=== PATIENT | male | born 2005 | race Two or more races ===

== ENCOUNTER 2024-09-01 21:19 | Inpatient (IN) | payer MEDICAID ==
[~2024-09-01] VITALS: Ht 172.7 cm; Wt 87.0 kg
[~2024-09-01 21:19] MED LIST: POLYPOW59 PO; ZOFR4T PO
[2024-09-01 21:49] LABS: Basophils # (auto) 0 10 ^3/uL (0-0.2); Basophils % (auto) 0.4 % (0.0-2.0); Eosinophils # (auto) 0.1 10 ^3/uL (0-0.8); Eosinophils % (auto) 1.4 % (0.0-7.0); Hemoglobin 16.2 g/dL (13.5-17.5); Lymphocytes # (auto) 1.8 10 ^3/uL (0.4-5.4); Lymphocytes % (auto) 18.6 % (10.0-50.0); Mean Corpuscular Hemoglobin 29.4 pg (28.0-32.0); Mean Corpuscular Hgb Conc. 33.8 g/dL (32.0-36.0); Mean Corpuscular Volume 87.2 fL (80.0-100.0); Monocytes # (auto) 0.9 10 ^3/uL (0-1.3); Monocytes % (auto) 9.1 % (0.0-12.0); Neutrophils # (auto) 6.9 10 ^3/uL (1.6-8.6); Neutrophils % (auto) 70.5 % (37.0-80.0); Nucleated Red Blood Cells % 0.1 %; Platelet Count (auto) 314 10^3/uL (140-450); Red Blood Cells 5.51 10^6/uL (4.5-5.90); Red Cell Distribution Width 14.6 % (11.8-14.3); White Blood Cell 9.8 10^3/uL (4.4-10.8)
--- NOTE | 2024-09-01 22:02 | ED.PDOC ---
HPI Comments 19-year-old male came to emergency room due to chest pains. Patient has history of asthma and anxiety, states for the past week, he has been having intermittent episodes left-sided chest pains, pressure, nonradiating, unprovoked, tender to touch, associated with body malaise and low-grade fever. He denies using any prohibited drugs. NO FAMILY HISTORY OF CARDIAC DISEASE. Chief Complaint: Chest Pain Time Seen by MD: 22:01 Reviewed Notes: Nurses Notes Allergies: Coded Allergies: NO KNOWN ALLERGIES (Unverified , 10/02/12) Home Meds Active Scripts Polyethylene Glycol 3350 (Goodsense Clearlax) 17 Gm/Scoop Pow, 17 GM PO DAILY for 5 Days, #5 POW Prov:ELOY CALABRESE 03/01/24 Ondansetron Odt 4MG Tab (ZOFRAN PO) 4 Mg Tb, 4 MG PO Q6HPRN PRN, #15 TAB ODT TAB-DISSOLVE IN MOUTH, THEN SWALLOW Prov:ELOY CALABRESE 03/01/24 Information Source: Patient Mode of Arrival: Ambulatory Severity: Moderate Timing: Days Duration: Intermittent Prehospital treatment: None Review of Systems REVIEW OF SYSTEMS: No fever, no chills, or fatigue HEENT: No sore throat, no earache, no congestion, no neck pain. Cardiac: (+) chest pain. No palpitations. Lungs: No shortness of breath, no cough. GI: No nausea, no vomiting, no diarrhea, no constipation, no abdominal pain : No dysuria, frequency, or urgency. No hematuria. Musculoskeletal: No joint pain , no joint swelling, no extremity edema. Skin: No rash, no itching. Neuro: No headache, no dizziness, no weakness Vital Signs Vital Signs Date Time Temp Pulse Resp B/P (MAP) Pulse Ox O2 Delivery O2 Flow Rate FiO2 09/02/24 00:13 97.8 87 18 138/72 (94) 96 97.8 09/01/24 22:57 Room Air Physical Exam General: Awake, alert and oriented. No acute distress. Skin: Skin in warm, dry and intact. Appropriate color for ethnicity. Nailbeds pink with no cyanosis. HEENT: The head is normocephalic and atraumatic. Conjunctivae are clear without exudates or hemorrhage. Sclera is non-icteric. EOM are intact. No signs of nystagmus. Eyelids are normal in appearance without swelling or lesions. Oral mucosa is pink and moist Neck: The neck is supple with normal range of motion. No JVD. Cardiac: Heart rate and rhythm are normal. No murmurs, gallops, or rubs are auscultated. Respiratory: No signs of respiratory distress. Lung sounds are clear in all lobes bilaterally without rales, ronchi, or wheezes. Abdominal: Abdomen is soft, non-tender without distention. Bowel sounds are present and normoactive in all four quadrants. Extremities: Upper and lower extremities are atraumatic in appearance without deformity or edema. Neurological: The patient is awake, alert and oriented to person, place, and time with normal speech. Speech is clear. There is no facial asymmetry. Psychiatric: Appropriate mood and affect. Good judgement and insight. No visual or auditory hallucinations. Past Medical History PAST MEDICAL HISTORY: Anxiety, Asthma Surgical History: Denies all surgeries Family History Family History: Reviewed,noncontributory to illness Social History Smoker: Non-Smoker Alcohol: Denies ETOH Use Drugs: Denies Drug Use Lives In: Home EKG EKG : Pulse Rate (adult): 105 Cardiac Rhythm: ST Hypertrophy: LAE Was a procedure done? Was a procedure done?: No CP Differential Dx Differential Diagnosis: Angina, Anxiety / Panic Attack Differential Diagnosis: Angina, Chest Wall Pain, Costochondritis, Esophageal reflux/spasm, Gastritis, Myocardial Infarction X-Ray, Labs, Meds, VS Vital Signs Date Time Temp Pulse Resp B/P (MAP) Pulse Ox O2 Delivery O2 Flow Rate FiO2 09/02/24 00:13 97.8 87 18 138/72 (94) 96 97.8 09/02/24 00:12 87 18 138/72 09/01/24 23:27 82 18 156/79 09/01/24 22:57 82 18 98 Room Air 09/01/24 22:57 98.6 82 18 156/79 (104) 98 98.6 09/01/24 22:33 92 09/01/24 22:02 105 09/01/24 21:26 105 09/01/24 21:20 98.8 96 18 153/79 (103) 96 Lab Test 09/01/24 23:33 09/01/24 22:59 09/01/24 21:29 Range/Units D-Dimer, Quantitative Pending Magnesium Level 2.2 1.6-2.6 mg/dL Troponin I High Sensitivity 89 *H 81 *H 84 *H </=54 ng/L White Blood Count 9.8 4.4-10.8 10^3/uL Red Blood Count 5.51 4.5-5.90 10^6/uL Hemoglobin 16.2 13.5-17.5 g/dL Hematocrit 48.0 41.0-53.0 % Mean Corpuscular Volume 87.2 80.0-100.0 fL Mean Corpuscular Hemoglobin 29.4 28.0-32.0 pg Mean Corpuscular Hemoglobin Concent 33.8 32.0-36.0 g/dL Red Cell Distribution Width 14.6 H 11.8-14.3 % Platelet Count 314 140-450 10^3/uL Mean Platelet Volume 7.6 6.9-10.8 fL Neutrophils (%) (Auto) 70.5 37.0-80.0 % Lymphocytes (%) (Auto) 18.6 10.0-50.0 % Monocytes (%) (Auto) 9.1 0.0-12.0 % Eosinophils (%) (Auto) 1.4 0.0-7.0 % Basophils (%) (Auto) 0.4 0.0-2.0 % Neutrophils # (Auto) 6.9 1.6-8.6 10 ^3/uL Lymphocytes # (Auto) 1.8 0.4-5.4 10 ^3/uL Monocytes # (Auto) 0.9 0-1.3 10 ^3/uL Eosinophils # (Auto) 0.1 0-0.8 10 ^3/uL Basophils # (Auto) 0 0-0.2 10 ^3/uL Nucleated Red Blood Cells 0.1 % Sodium Level 138 136-145 mmol/L Potassium Level 4.1 3.5-5.1 mmol/L Chloride Level 102 98-107 mmol/L Carbon Dioxide Level 26 20-31 mmol/L Anion Gap 10 5-15 Blood Urea Nitrogen 22 9-23 mg/dL Creatinine 0.93 0.700-1.30 mg/dL Glomerular Filtration Rate Calc 121 >90 mL/min BUN/Creatinine Ratio 23.7 H 10.0-20.0 Serum Glucose 88 74-106 mg/dL Calcium Level 10.7 H 8.7-10.4 mg/dL Total Bilirubin 0.5 0.2-1.0 mg/dL Aspartate Amino Transferase (AST) 44 H 13-40 U/L Alanine Aminotransferase (ALT) 54 H 7-40 U/L Alkaline Phosphatase 94 46-116 U/L B-Type Natriuretic Peptide 2.00 0-100 pg/mL Total Protein 7.8 5.7-8.2 g/dL Albumin 4.9 H 3.2-4.8 g/dL Current Medications Medications (Trade) Dose Ordered Sig/Aleksandr Route Start Time Stop Time Status Last Admin Aspirin 324 mg ONCE ONCE PO 09/01/24 21:30 09/01/24 21:31 DC 09/01/24 23:06 Morphine Sulfate 2 mg ONCE ONCE IV 09/01/24 21:30 09/01/24 21:31 DC 09/01/24 23:27 EXAM: XY CHEST XRAY 1 VIEW CLINICAL HISTORY: cp TECHNIQUE: Single AP view of the chest WID: COMPARISON: XY CHEST PORTABLE on DOS: 10/23/23 FINDINGS: Lines and tubes: None Chest: The heart size and pulmonary vasculature is within normal limits. No pleural effusion, pneumothorax, or consolidation. The osseous structures are grossly intact. IMPRESSION: No acute cardiopulmonary abnormality. Time of 1ST Reevaluation: 21:59 Reevaluation 1ST: Unchanged Patient Education/Counseling: Diagnosis, Treatment Family Education/Counseling: No Family Present Departure 1 Departure Time of Disposition: 01:07 Impression: Primary Impression: Chest pain Additional Impression: Elevated troponin Disposition: ADMITTED INPATIENT Condition: Stable Comments 19-year-old male with several days of left-sided chest pain. Patient denies any known past medical history. EKG shows no ST changes or ST elevations. Troponin is elevated. Patient admitted for further treatment, evaluation and monitoring. Critical Care Note Critical Care Time?: Yes (35 min-critical care time only) Critical care comment: Active chest pains Stability Stability form required: No Heart Score Heart Score: Heart Score Response (Comments) Value History Slightly Suspicious 0 EKG Repolarization Disturb 1 Age <45 0 Risk Factors No known risk factors 0 Troponin >3 x's Normal limit 2 Total 3 I personally scribed for AURORA HAWK MD ([email or web address]) on 09/01/24 at 22:02. Electronically submitted by Andrei Kwon ([facility]). I personally scribed for AURORA HAWK MD ([email or web address]) on 09/01/24 at 23:09. Electronically submitted by Andrei Kwon ([facility]). I personally scribed for AURORA HAWK MD ([email or web address]) on 09/02/24 at 01:02. Electronically submitted by Andrei Kwon ([facility]). AURORA HAWK MD Sep 01, 2024 22:02
[2024-09-01 22:06] LABS: Alkaline Phosphatase 94 U/L (46-116); Anion Gap 10 (5-15); BUN/Creatinine Ratio 23.7 (10.0-20.0); Bilirubin, Total 0.5 mg/dL (0.2-1.0); Blood Urea Nitrogen 22 mg/dL (9-23); Carbon Dioxide 26 mmol/L (20-31); Chloride 102 mmol/L (98-107); Glucose 88 mg/dL (74-106); Potassium 4.1 mmol/L (3.5-5.1); Sodium 138 mmol/L (136-145); Total Protein 7.8 g/dL (5.7-8.2)
[2024-09-01 22:37] LABS: Alanine Aminotransferase 54 U/L (7-40); Albumin 4.9 g/dL (3.2-4.8); Aspartate Aminotransferase 44 U/L (13-40); Calcium 10.7 mg/dL (8.7-10.4)
--- NOTE | 2024-09-01 22:51 | DVH ---
EXAM: XY CHEST XRAY 1 VIEW CLINICAL HISTORY: cp TECHNIQUE: Single AP view of the chest WID: COMPARISON: XY CHEST PORTABLE on DOS: 10/23/23 FINDINGS: Lines and tubes: None Chest: The heart size and pulmonary vasculature is within normal limits. No pleural effusion, pneumothorax, or consolidation. The osseous structures are grossly intact. IMPRESSION: No acute cardiopulmonary abnormality.
[2024-09-01] MEDS: ASPirin 81 mg TAB PO ONE (23:06)
[2024-09-01] MEDS: MORPHINE SULFATE INJ 2 MG/ml SYRG IV ONE (23:27)
[2024-09-02] MEDS ORDERED: MORPHINE SULFATE INJ 2 MG/ml SYRG IV PRN ×2 (03:45→04:15)
[2024-09-02] MEDS ORDERED: HYDROcodone-ACET 5/325MG TAB PO PRN (03:45)
[2024-09-02] MEDS ORDERED: ONDANSETRON HCL 4 MG/2 ML VIAL IV PRN (03:45)
[2024-09-02] MEDS ORDERED: ACETAMINOPHEN 325 MG TAB PO PRN (03:45)
[2024-09-02] MEDS: SODIUM CHLORIDE 0.9% 1,000 ML IV SCH (03:45)
[2024-09-02] MEDS ORDERED: DOCUSATE SOD 100 MG CAP PO PRN (03:45)
[2024-09-02 04:09] LABS: Basophils # (auto) 0.1 10 ^3/uL (0-0.2); Basophils % (auto) 0.6 % (0.0-2.0); Eosinophils # (auto) 0.1 10 ^3/uL (0-0.8); Eosinophils % (auto) 1.2 % (0.0-7.0); Hematocrit 46.8 % (41.0-53.0); Hemoglobin 15.9 g/dL (13.5-17.5); Lymphocytes # (auto) 2.5 10 ^3/uL (0.4-5.4); Lymphocytes % (auto) 27.9 % (10.0-50.0); Mean Corpuscular Hemoglobin 29.7 pg (28.0-32.0); Mean Corpuscular Volume 87.4 fL (80.0-100.0); Monocytes # (auto) 0.9 10 ^3/uL (0-1.3); Monocytes % (auto) 9.8 % (0.0-12.0); Neutrophils # (auto) 5.3 10 ^3/uL (1.6-8.6); Neutrophils % (auto) 60.5 % (37.0-80.0); Nucleated Red Blood Cells % 0.1 %; Platelet Count (auto) 312 10^3/uL (140-450); Red Blood Cells 5.35 10^6/uL (4.5-5.90); Red Cell Distribution Width 14.4 % (11.8-14.3); White Blood Cell 8.8 10^3/uL (4.4-10.8)
--- NOTE | 2024-09-02 04:12 | DVHHP2 ---
History of Present Illness Reason for Visit: Acute chest pain History of Present Illness The patient is a 19-year-old male with past medical history of asthma and anxiety who presented to [facility] ED with complaint of chest pain. Patient reports having intermittent episode of left-sided chest pain, pressure in nature, nonradiating, tender to touch, getting worse that prompted this visit. Patient was seen and evaluated in the ED, laboratory data shows WBC 9.8, platelets 314, sodium 138, potassium 4.1, BUN 22, creatinine 0.93, GFR 121, glucose 88, troponin 89, AST 44, ALT 54, blood pressure 138/72, heart rate 87, temperature 97.8 F, O2 saturation 98% on room air. Patient was given aspirin 3 24 mg by mouth x1, please see medication orders section in the computer. On my assessment, patient denies chest pain at this moment, no headache, no dizziness, no diaphoresis, no shortness of breaths, no nausea, no vomiting, no fever, no chills. Patient was admitted for further evaluation and medical management. Past Medical History Anxiety, Asthma Past Surgical History Denies all surgeries Family History Reviewed, noncontributory to the management of this case. Past Social History The patient lives at home, denies smoking, alcohol or illicit drugs abuse. Review of Systems Constitutional: Yes: Malaise; No: Fever, Chills, Sweats, Weakness, Other Eyes: No: Pain, Vision change, Conjunctivae inflammation, Eyelid inflammation, Other, Redness ENT: No: Ear pain, Ear discharge, Nose pain, Nose discharge, Nose congestion, Mouth pain, Mouth swelling, Throat pain, Throat swelling, Other Respiratory: No: Cough, Dry, Shortness of breath, SOB with excertion, Wheezing, Hemoptysis, Pleuritic Pain, Sputum, Wheezing, Other Cardiovascular: Chest Pain; No: Palpitations, Orthopnea, Paroxysmal Noc. Dyspnea, Edema, Lt Headedness, Other Gastrointestinal: No: Nausea, Vomiting, Abdominal Pain, Diarrhea, Constipation, Melena, Hematochezia, Other Genitourinary: No Dysuria, No Frequency, No Incontinence, No Hematuria, No Retention, No Other Musculoskeletal: No: other, neck pain, shoulder pain, arm pain, back pain, hand pain, leg pain, foot pain Skin: No: Rash, Lesions, Jaundice, Bruising, Other Neurological: No: Weakness, Numbness, Incoordination, Change in speech, Confusion, Seizures, Other Allergies: Coded Allergies: NO KNOWN ALLERGIES (Unverified , 10/02/12) Medications Current Medications Medications Dose Ordered Sig/Aleksandr Route Start Time Stop Time Status Last Admin Dose Admin Aspirin 81 mg DAILY PO 09/02/24 10:00 Sodium Chloride 1,000 ml @ 60 mls/hr [id number] IV 09/02/24 03:45 Acetaminophen/ Hydrocodone Bitart 1 tab Q4HP PRN PO 09/02/24 03:45 Ondansetron HCl 4 mg Q4HP PRN IV 09/02/24 03:45 Docusate Sodium 100 mg BIDPRN PRN PO 09/02/24 03:45 Acetaminophen 650 mg Q6HP PRN PO 09/02/24 03:45 Morphine Sulfate 2 mg Q4HPRN PRN IV 09/02/24 03:45 Exam Vital Signs Vital Signs Date Time Temp Pulse Resp B/P (MAP) Pulse Ox O2 Delivery O2 Flow Rate FiO2 09/02/24 00:13 97.8 87 18 138/72 (94) 96 97.8 09/01/24 22:57 Room Air General Appearance: Alert, Oriented X3, Cooperative, No acute distress HEENT: Atraumatic, PERRLA, EOMI, Mucous membr. moist/pink Respiratory: Clear to auscultation, Normal air movement Cardiovascular: Regular rate, Normal S1, Normal S2, No murmurs Abdominal: Normal bowel sounds, Soft, No tenderness, No hepatospenomegaly, No masses Extremities: No clubbing, No cyanosis, No edema, Normal pulses, No tender ness/swelling Skin: No rashes, No breakdown, No significant lesion Neuro: Normal gait, Normal speech, Strength at 5/5 X4 ext, Normal tone, Sensation intact, Cranial nerves 3-12 NL, Reflexes 2+ Psych/Mental Status: Mental status NL, Mood NL Labs/Xrays Labs Test 09/02/24 03:56 09/01/24 23:33 09/01/24 21:29 Range/Units White Blood Count 8.8 4.4-10.8 10^3/uL Red Blood Count 5.35 4.5-5.90 10^6/uL Hemoglobin 15.9 13.5-17.5 g/dL Hematocrit 46.8 41.0-53.0 % Mean Corpuscular Volume 87.4 80.0-100.0 fL Mean Corpuscular Hemoglobin 29.7 28.0-32.0 pg Mean Corpuscular Hemoglobin Concent 34.0 32.0-36.0 g/dL Red Cell Distribution Width 14.4 H 11.8-14.3 % Platelet Count 312 140-450 10^3/uL Mean Platelet Volume 7.5 6.9-10.8 fL Neutrophils (%) (Auto) 60.5 37.0-80.0 % Lymphocytes (%) (Auto) 27.9 10.0-50.0 % Monocytes (%) (Auto) 9.8 0.0-12.0 % Eosinophils (%) (Auto) 1.2 0.0-7.0 % Basophils (%) (Auto) 0.6 0.0-2.0 % Neutrophils # (Auto) 5.3 1.6-8.6 10 ^3/uL Lymphocytes # (Auto) 2.5 0.4-5.4 10 ^3/uL Monocytes # (Auto) 0.9 0-1.3 10 ^3/uL Eosinophils # (Auto) 0.1 0-0.8 10 ^3/uL Basophils # (Auto) 0.1 0-0.2 10 ^3/uL Nucleated Red Blood Cells 0.1 % D-Dimer, Quantitative 0.25 0.0-0.49 mg/L FEU Magnesium Level 2.2 1.6-2.6 mg/dL B-Type Natriuretic Peptide 2.00 0-100 pg/mL [id number] UN[facility]: [id number] : 2005 LOC: ER ROOM / BED: / AGE / SEX: 19 / M ADM STATUS: REG ER SERVICE 26 ORDERING PHYSICIAN: AURORA HAWK MD PROCEDURE(s): CXR1 - CHEST XRAY 1 VIEW REASON: cp ORDER NUMBER(s): [id number], ACCESSION NUMBER(s): [id number] EXAM: XY CHEST XRAY 1 VIEW CLINICAL HISTORY: cp TECHNIQUE: Single AP view of the chest WID: COMPARISON: XY CHEST PORTABLE on DOS: 3/29/24 FINDINGS: Lines and tubes: None Chest: The heart size and pulmonary vasculature is within normal limits. No pleural effusion, pneumothorax, or consolidation. The osseous structures are grossly intact. IMPRESSION: No acute cardiopulmonary abnormality. Assessment/Plan Assessment/Plan Acute chest pain Elevated troponin Plan 1. Admit to telemetry unit 2. Breathing treatment 3. Pain control management 4. Management of fluids and electrolytes 5. Consultation for Cardiology 6. Diagnostic tests chest x-ray 7. DVT prophylaxis-on aspirin 8. Repeat labs CBC, CMP in a.m. 9. Continue with current medical management 10. Treatment plan discussed with patient and RN. Patient verbalized understanding. Plan discussed with: Patient, Other (RN) My Orders Orders - SANCHO LEWIS DNP Procedure Category Date Status Time Comprehensive LAB 09/02/24 In Process Metabolic Panel 03:41 Aspirin Tablet PHA 09/02/24 In Process 10:00 Troponin-I Hs LAB 09/02/24 In Process 03:41 Troponin-I Hs LAB 09/02/24 Logged 07:00 Allergies MARYBETH 09/02/24 In Process 03:41 Code Status CODE 09/02/24 Transmitted 03:41 Sodium Chloride 0.9% PHA 09/02/24 In Process 03:45 Oxygen Per Hour RT 09/02/24 Transmitted 03:41 Hydrocodone-Acet PHA 09/02/24 In Process 5/325mg Tab ([place] 03:45 Ondansetron Hcl PHA 09/02/24 In Process (Zofran) 03:45 Docusate Sodium PHA 09/02/24 In Process Capsule (Colace 03:45 Complete Blood Count LAB 09/03/24 Verified 04:00 Comprehensive LAB 09/03/24 Verified Metabolic Panel 04:00 Cardiac DIET 09/02/24 Transmitted Diet-2gna,Lofat,Lochol Breakfast Condition: Serious MARYBETH 09/02/24 In Process 03:41 Acetaminophen Tablet PHA 09/02/24 In Process (Tylenol Tablet) 03:45 Bedrest With Bathroom MARYBETH 09/02/24 In Process Privileg 03:41 Morphine Sulfate PHA 09/02/24 In Process Injection 03:45 Sequential MARYBETH 09/02/24 In Process Compression Device Admit ADMIT 09/02/24 Verified 04:10 Nitroglycerin PHA 09/02/24 Verified Sublingual (Ntrostat 04:15 Morphine Sulfate PHA 09/02/24 Verified Injection 04:15 Notify Of Changes MRAYBETH 09/02/24 Verified From Base 04:10 Behavioral Therapy Coordinator For [facility] 09/02/24 Verified 24 Hours 04:10 Emergency Dysrhythmia [facility] 09/02/24 Verified Protocol 04:10 Rhythm Strips Once [facility] 09/02/24 Verified Every Shift 04:10 Oxygen By Nasal 09/02/24 Verified Cannula 04:10 Problem List: (1) Acute chest pain (2) Elevated troponin Date of Service: Sep 02, 2024 Billing Provider: SANCHO LEWIS DNP Common Visit Codes: 94233-AMPRPHQ INP/OBS CARE (HIGH) SANCHO LEWIS DNP Sep 02, 2024 04:12
[2024-09-02] MEDS ORDERED: NITROGLYCERIN 0.4 MG SL TAB SL PRN (04:15)
[2024-09-02 04:27] LABS: Albumin 4.6 g/dL (3.2-4.8); Alkaline Phosphatase 84 U/L (46-116); Anion Gap 9 (5-15); Aspartate Aminotransferase 35 U/L (13-40); Bilirubin, Total 0.6 mg/dL (0.2-1.0); Blood Urea Nitrogen 16 mg/dL (9-23); Carbon Dioxide 26 mmol/L (20-31); Chloride 103 mmol/L (98-107); Glucose 100 mg/dL (74-106); Potassium 4.1 mmol/L (3.5-5.1); Sodium 138 mmol/L (136-145); Total Protein 7.6 g/dL (5.7-8.2)
[2024-09-02 04:29] LABS: Alanine Aminotransferase 50 U/L (7-40)
[2024-09-02 08:08] LABS: Triglycerides 64 mg/dL (< 150)
[2024-09-02 08:10] LABS: Cholesterol 171 mg/dL (< 200); HDL Cholesterol 50 mg/dL (40-59)
[2024-09-02 08:14] LABS: LDL Cholesterol 112 mg/dL (< 100)
--- NOTE | 2024-09-02 08:24 | ECG ---
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
--- NOTE | 2024-09-02 08:24 | ECG ---
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
[2024-09-02 08:51] LABS: Urine Bacteria None Seen /hpf (None Seen)
[2024-09-02 09:17] LABS: Opiate Scree,Urine Neg (NEGATIVE)
[2024-09-02 09:19] LABS: Amphetamine Screen, Urine Neg (NEGATIVE); Barbiturate Scree,Urine Neg (NEGATIVE); Benzodiazephine Screen, Urine Neg (NEGATIVE); Cannabinoid Screen, Urine Neg (NEGATIVE); Cocaine Screen, Urine Neg (NEGATIVE); Phencyclidine Screen, Urine Neg (NEGATIVE)
[2024-09-02 09:28] LABS: Urine Blood Negative /uL (Negative); Urine Clarity Clear (Clear); Urine Color Yellow (Yellow); Urine Protein, UAD Negative (Negative); Urine Specific Gravity 1.026 (1.001-1.035); Urine Squamous Epithelial Cell None Seen /hpf (<5); Urine Urobilinogen Normal (Negative); Urine WBC 21 /HPF (0-3); Urine pH 5.5 (5.0-9.0)
--- NOTE | 2024-09-02 09:42 | DVHINCON2 ---
Date Seen: Sep 02, 2024 Referring Physician MD Juan Luis Reason for Consultation Chest pain, elevated troponin History of Present Illness This is a 19-year-old male patient who presents to the emergency room with chief complaint of chest pain. The patient states that he has been experiencing chest pain for approximately one week. The patient describes the pain as unprovoked, intermittent, pressure-like in nature, and left-sided with radiation across to the right side of his chest. He denies any associated symptoms. Pain is reproducible upon palpation. Initial twelve lead electrocardiogram reveals sinus tachycardia with ST segment depression to inferolateral leads. Initial troponin level of 84ng/L with flat trend thereafter. Significant past medical history includes asthma and anxiety. Past Medical History Past medical history reviewed. No other significant than mentioned above. Past Surgical History Denies all previous surgeries Family History: Diabetes mellitus G8 MOTHER Family History Family history reviewed. Social History Denies the use of tobacco, alcohol or illicit drugs. Allergies: Coded Allergies: NO KNOWN ALLERGIES (Unverified , 10/02/12) Home Meds Active Scripts Polyethylene Glycol 3350 (Goodsense Clearlax) 17 Gm/Scoop Pow, 17 GM PO DAILY for 5 Days, #5 POW Prov:ELOY CALABRESE 03/01/24 Ondansetron Odt 4MG Tab (ZOFRAN PO) 4 Mg Tb, 4 MG PO Q6HPRN PRN, #15 TAB ODT TAB-DISSOLVE IN MOUTH, THEN SWALLOW Prov:ELOY CALABRESE [facility] 03/01/24 Home Meds Denies taking any prescribed medications Current Medications Current Medications Medications (Trade) Dose Ordered Sig/Aleksandr Route PRN Reason Start Time Stop Time Status Last Admin Aspirin 81 mg DAILY PO 09/02/24 10:00 Sodium Chloride 1,000 ml @ 60 mls/hr [id number] IV 09/02/24 03:45 Acetaminophen/ Hydrocodone Bitart ([place] 5/325MG Tab) 1 tab Q4HP PRN PO MODERATE PAIN (4-6 PAIN SCALE) 09/02/24 03:45 Ondansetron HCl (Zofran) 4 mg Q4HP PRN IV NAUSEA / VOMITING 09/02/24 03:45 Docusate Sodium (Colace Capsule) 100 mg BIDPRN PRN PO FOR CONSTIPATION 09/02/24 03:45 Acetaminophen (Tylenol Tablet) 650 mg Q6HP PRN PO PAIN SCALE 1-3 OR TEMP>100.4 09/02/24 03:45 Morphine Sulfate 2 mg Q4HPRN PRN IV SEVERE PAIN (7-10 PAIN SCALE) 09/02/24 03:45 Nitroglycerin (Ntrostat Sublingual) 0.4 mg Q5MINP PRN SL FOR CHEST PAIN 09/02/24 04:15 Morphine Sulfate 2 mg Q30M PRN IV FOR CHEST PAIN 09/02/24 04:15 Review of Systems Constitutional: No symptom reported Ears, Nose, & Throat: No symptom reported Eyes: No symptom reported Neurological: No symptoms reported Pulmonary/Respiratory: No symptoms reported Cardiovascular: Chest pain Gastrointestinal: No symptom reported Genitourinary: No symptom reported Musculoskeletal: No symptom reported Skin: No symptom reported Psychiatric: No symptom reported Endocrine: No symptom reported Hematologic/Lymphatic: No symptom reported Vital Signs Vital Signs Date Time Temp Pulse Resp B/P (MAP) Pulse Ox O2 Delivery O2 Flow Rate FiO2 09/02/24 08:52 88 18 137/77 (97) 98 09/02/24 05:37 98.0 98.0 09/01/24 22:57 Room Air Physical Exam General Appearance: Cooperative. Well-developed. Well-nourished. No acute distress. Pulmonary/Respiratory: Clear, bilateral breaths sounds. Cardiovascular/Chest: Regular rate and rhythm. Peripheral Pulses: 2+ Radial (R). 2+ Radial (L). 2+ Pedal (R). 2+ Pedal (L) Abdominal Exam: Normal bowel sounds. Ankle Exam: Negative ankle edema Lower extremities: Negative lower extremity edema Neuro/Mental Status: A/OX4, coherent. Thoughts/Psych: Normal thought pattern. Appropriate mood and affect. Good judgment and insight. Appearance: No acute distress. Skin Exam: Normal inspection. Normal color. Warm and dry. Labs/Diagnostic Data Labs Test 09/02/24 07:47 09/02/24 07:35 09/02/24 07:25 09/02/24 03:56 Range/Units Urine Color Yellow Yellow Urine Clarity Clear Clear Urine pH 5.5 5.0-9.0 Urine Specific [place] 1.026 1.001-1.035 Urine Protein Negative Negative Urine Ketones Negative Negative Urine Blood Negative Negative /uL Urine Nitrite Negative Negative Urine Bilirubin Negative Negative Urine Urobilinogen Normal Negative mg/dL Urine Leukocyte Esterase 1+ Negative /uL Urine RBC 2 0 - 3 /hpf Urine Microscopic WBC 21 H 0-3 /HPF Urine Squamous Epithelial Cells None seen <5 /hpf Urine Bacteria None seen None Seen /hpf Urine Glucose Normal Normal mg/dL Urine Opiates Screen Neg NEGATIVE Urine Fentanyl Screen Neg NEGATIVE Urine Barbiturates Screen Neg NEGATIVE Urine Phencyclidine Screen Neg NEGATIVE Urine Amphetamines Screen Neg NEGATIVE Urine Benzodiazepines Screen Neg NEGATIVE Urine Cocaine Screen Neg NEGATIVE Urine Cannabinoids Screen Neg NEGATIVE Triglycerides Level 64 < 150 mg/dL Cholesterol Level 171 < 200 mg/dL LDL Cholesterol 112 H < 100 mg/dL HDL Cholesterol 50 40-59 mg/dL Troponin I High Sensitivity 96 *H </=54 ng/L Thyroid Stimulating Hormone (TSH) 3.05 0.55-4.78 uIU/mL White Blood Count 8.8 4.4-10.8 10^3/uL Red Blood Count 5.35 4.5-5.90 10^6/uL Hemoglobin 15.9 13.5-17.5 g/dL Hematocrit 46.8 41.0-53.0 % Mean Corpuscular Volume 87.4 80.0-100.0 fL Mean Corpuscular Hemoglobin 29.7 28.0-32.0 pg Mean Corpuscular Hemoglobin Concent 34.0 32.0-36.0 g/dL Red Cell Distribution Width 14.4 H 11.8-14.3 % Platelet Count 312 140-450 10^3/uL Mean Platelet Volume 7.5 6.9-10.8 fL Neutrophils (%) (Auto) 60.5 37.0-80.0 % Lymphocytes (%) (Auto) 27.9 10.0-50.0 % Monocytes (%) (Auto) 9.8 0.0-12.0 % Eosinophils (%) (Auto) 1.2 0.0-7.0 % Basophils (%) (Auto) 0.6 0.0-2.0 % Neutrophils # (Auto) 5.3 1.6-8.6 10 ^3/uL Lymphocytes # (Auto) 2.5 0.4-5.4 10 ^3/uL Monocytes # (Auto) 0.9 0-1.3 10 ^3/uL Eosinophils # (Auto) 0.1 0-0.8 10 ^3/uL Basophils # (Auto) 0.1 0-0.2 10 ^3/uL Nucleated Red Blood Cells 0.1 % Sodium Level 138 136-145 mmol/L Potassium Level 4.1 3.5-5.1 mmol/L Chloride Level 103 98-107 mmol/L Carbon Dioxide Level 26 20-31 mmol/L Anion Gap 9 5-15 Blood Urea Nitrogen 16 9-23 mg/dL Creatinine 0.94 0.700-1.30 mg/dL Glomerular Filtration Rate Calc 119 >90 mL/min BUN/Creatinine Ratio 17.0 10.0-20.0 Serum Glucose 100 74-106 mg/dL Hemoglobin A1c 5.0 <5.7 % A1C Calcium Level 10.0 8.7-10.4 mg/dL Total Bilirubin 0.6 0.2-1.0 mg/dL Aspartate Amino Transferase (AST) 35 13-40 U/L Alanine Aminotransferase (ALT) 50 H 7-40 U/L Alkaline Phosphatase 84 46-116 U/L Total Protein 7.6 5.7-8.2 g/dL Albumin 4.6 3.2-4.8 g/dL Test 09/01/24 23:33 09/01/24 21:29 Range/Units D-Dimer, Quantitative 0.25 0.0-0.49 mg/L FEU Magnesium Level 2.2 1.6-2.6 mg/dL B-Type Natriuretic Peptide 2.00 0-100 pg/mL Assessment Chest pain, rule out coronary ischemia NSTEMI, likely type II Rule out structural heart disease Hyperlipidemia, newly diagnosed Plan/Recommendation We will continue following plan/recommendations (Dr. Denny): * Echocardiogram to evaluate cardiac function * Chest pain protocol * ROSALINA score: 2 points * HEART score: 2 points * Cardiac surveillance * Nuclear stress test Patient seen and examined in the emergency room with . We will schedule the patient for a nuclear stress test at first availability. Thank you for allowing us to care for this patient. Please call with any questions or concerns. Critical care time spent: 41 minutes This medical document was created using an electronic medical record system with voice recognition software and computerized dictation system. Although this document has been carefully reviewed, there might still be some phonetic and typographical errors. Occasional wrong-word or ``sound-alike substitutions may have occurred due to the inherent limitations of voice recognition software. These areas are purely typographical due to imperfections of the software programs and do not reflect any compromise in the patient's medical care. Please read the chart carefully and recognize, using context, where these substitutions have occurred. Plan discussed with: Patient NYHA Physical activity limitations: NA Date of Service: Sep 02, 2024 Billing Provider: BHAVANI NICHOLSON Cardiology Common Codes: 76052-[id number] INP/OBS CARE (High) Cardiology Consultation Codes: [id number] CONSULT <45MIN BHAVANI NICHOLSON Sep 02, 2024 09:42
[2024-09-02 10:31] VITALS: PULSE 74; RESP 16; O2SAT 96
[2024-09-02] MEDS: ASPirin 81 mg TAB PO SCH (10:31)
[2024-09-02 11:36] LABS: Erythrocyte Sedimentation Rate 6 mm/hr (0-20)
--- NOTE | 2024-09-02 18:06 | DVHPN2 ---
Subjective Continues to have intermittent chest pain at rest. Reports it being substernal with radiation to left shoulder and arm. Reviewed: Care Plan, H&P, Labs, Medications Changes from previous H/P or p: No Changes General: Per HPI Eyes: No Pain, No Vision change, No Conjunctivae inflammation, No Eyelid inflammation, No Other, No Redness ENT: No Ear pain, No Ear discharge, No Nose pain, No Nose discharge, No Nose congestion, No Mouth pain, No Mouth swelling, No Throat pain, No Throat swelling, No Other Cardiovascular: Chest Pain; No Palpitations, No Orthopnea, No Paroxysmal Noc. Dyspnea, No Edema, No Lt Headedness, No Other Respiratory: No Cough, No Dry, No Shortness of breath, No SOB with excertion, No Wheezing, No Hemoptysis, No Pleuritic Pain, No Sputum, No Other Gastrointestinal: No Nausea, No Vomiting, No Abdominal Pain, No Diarrhea, No Constipation, No Melena, No Hematochezia, No Other Genitourinary: No Dysuria, No Frequency, No Incontinence, No Hematuria, No Retention, No Other Musculoskeletal: No other, No neck pain, No shoulder pain, No arm pain, No back pain, No hand pain, No leg pain, No foot pain Skin: No Rash, No Lesions, No Jaundice, No Bruising, No Other Objective Vitals Vital Signs Date Time Temp Pulse Resp B/P (MAP) Pulse Ox O2 Delivery O2 Flow Rate FiO2 09/02/24 10:31 74 16 96 Room Air* 0 21 09/02/24 08:52 137/77 (97) 09/02/24 05:37 98.0 98.0 General Appearance: Alert, Oriented X3, Cooperative, mild distress HEENT: Atraumatic, PERRLA Lungs: Clear to auscultation, Normal air movement Cardiovascular: Normal S1, Normal S2 Abdomen: Normal bowel sounds Musculoskeletal: Normal sensory function, Normal motor function Neuro: Normal speech Psych/Mental Status: Mental status NL, Mood NL Medications Current Medications Medications Dose Ordered Sig/Aleksandr Route Start Time Stop Time Status Last Admin Dose Admin Aspirin 81 mg DAILY PO 09/02/24 10:00 09/02/24 10:31 81 MG Sodium Chloride 1,000 ml @ 60 mls/hr [id number] IV 09/02/24 03:45 Acetaminophen/ Hydrocodone Bitart 1 tab Q4HP PRN PO 2/7/25 03:45 Ondansetron HCl 4 mg Q4HP PRN IV 09/02/24 03:45 Docusate Sodium 100 mg BIDPRN PRN PO 09/02/24 03:45 Acetaminophen 650 mg Q6HP PRN PO 09/02/24 03:45 Morphine Sulfate 2 mg Q4HPRN PRN IV 09/02/24 03:45 Nitroglycerin 0.4 mg Q5MINP PRN SL 09/02/24 04:15 Morphine Sulfate 2 mg Q30M PRN IV 09/02/24 04:15 Laboratory Results Laboratory Tests 09/02/24 03:56 Chemistry Test 09/01/24 21:29 09/01/24 23:33 09/02/24 03:56 Albumin 4.9 g/dL (3.2-4.8) H 4.6 g/dL (3.2-4.8) Calcium Level 10.7 mg/dL (8.7-10.4) H 10.0 mg/dL (8.7-10.4) Total Protein 7.8 g/dL (5.7-8.2) 7.6 g/dL (5.7-8.2) Magnesium Level 2.2 mg/dL (1.6-2.6) Coagulation Test 09/01/24 23:33 D-Dimer, Quantitative 0.25 mg/L FEU (0.0-0.49) Lipid panel Test 09/02/24 07:35 Cholesterol Level 171 mg/dL (< 200) HDL Cholesterol 50 mg/dL (40-59) Triglycerides Level 64 mg/dL (< 150) Cardiac Markers Test 09/01/24 21:29 B-Type Natriuretic Peptide 2.00 pg/mL (0-100) LFT Test 09/01/24 21:29 09/02/24 03:56 Alanine Aminotransferase (ALT) 54 U/L (7-40) H 50 U/L (7-40) H Alkaline Phosphatase 94 U/L (46-116) 84 U/L (46-116) Aspartate Amino Transferase (AST) 44 U/L (13-40) H 35 U/L (13-40) Total Bilirubin 0.5 mg/dL (0.2-1.0) 0.6 mg/dL (0.2-1.0) HgA1c, TSH Test 09/02/24 03:56 09/02/24 07:25 Hemoglobin A1c 5.0 % A1C (<5.7) Thyroid Stimulating Hormone (TSH) 3.05 uIU/mL (0.55-4.78) Urinalysis Test 09/02/24 07:47 Urine Color Yellow (Yellow) Urine Clarity Clear (Clear) Urine pH 5.5 (5.0-9.0) Urine Specific [place] 1.026 (1.001-1.035) Urine Protein Negative (Negative) Urine Ketones Negative (Negative) Urine Blood Negative /uL (Negative) Urine Nitrite Negative (Negative) Urine Bilirubin Negative (Negative) Urine Urobilinogen Normal mg/dL (Negative) Urine Leukocyte Esterase 1+ /uL (Negative) Urine RBC 2 /hpf (0 - 3) Urine Microscopic WBC 21 /HPF (0-3) H Urine Squamous Epithelial Cells None seen /hpf (<5) Urine Bacteria None seen /hpf (None Seen) Urine Glucose Normal mg/dL (Normal) Labs and/or images reviewed: Labs reviewed by me, Image(s) reviewed by me Assessment/Plan Assessment/Plan Impression: -chest pain, NSTEMI, probably type 2 with unknown etiology at this time Plan: -cardiology consultation -CT scan of the chest -inflammatory markers negative -discussed case with both patient was well as Dr. Denny. Plans for cardiac stress test in a.m.. Total time spent with patient discussing and formulating plan of care: 35 minutes. This medical document was created using an electronic medical record system with [employer] dictation system. Although this document has been carefully reviewed, there may still be some phonetic and typographical errors. These areas are purely typographical due to imperfections of the software programs, and do not reflect any compromise in the patient's medical care. Plan discussed with: Patient, Other (RN) Date of Service: Sep 02, 2024 Billing Provider: ROSARIO DEVRIES NP Common Visit Codes: [id number] INP/OBS CARE(HIGH) ROSARIO DEVRIES NP Sep 02, 2024 18:05
--- NOTE | 2024-09-02 18:35 | DVH ---
Procedure: CT CHEST WITHOUT CONTRAST Reason for study/Clinical History: Chest pain, rule out cardiac anomaly Comparison Study: None available at time of dictation. Exam Date: 09/02/2024 06:05 PM TECHNIQUE: Multidetector CT of the chest was performed from the lung apices to the upper abdomen with out the use of intravenous contract. Axial, coronal and sagittal multiplanar reformats were performed . Radiation Dose Information: CT Dose: CTDI volume is 11.03 mGy. Dose-length product is 451.02 mGy*cm The dose indicators for CT are the volume Computed Tomography (CT) Dose Index (CTDIvol) and the Dose Length Product (DLP), and are measured in units of mGy and mGy-cm, respectively. These indicators are not patient dose, but values generated from the CT scanner acquisition factors. The report includes radiation exposure data for exposures received during this examination. FINDINGS: Lower neck: Normal thyroid. Lungs: No focal consolidation, pleural effusion or pneumothorax. Heart/Vascular Structures: Normal heart size. No pericardial effusion. Lymph Nodes: No adenopathy Pleura: No pleural effusion or significant pneumothorax. Musculoskeletal: No acute osseous abnormality. Soft tissues: Normal. Upper abdomen: Limited portions of the upper abdomen are unremarkable. IMPRESSION: 1. No acute intrathoracic abnormality. 2. Limited study by lack of IV contrast. 3. Consider cardiac gated MRI. If CT scan is preferred contrast and cardiac gating would be necessary . 4. Consider echocardiogram Radiation optimization: All CT scans at this facility use at least one of these dose optimization asnjiv hniques: automated exposure control mA and/or kV adjustment per patient size (includes targeted exam s where dose is matched to clinical indication) or iterative reconstruction.
--- NOTE | 2024-09-02 23:21 | DVHINCON2 ---
Date Seen: Sep 02, 2024 Referring Physician MD Juan Luis Reason for Consultation Chest pain, elevated troponin History of Present Illness This is a 19-year-old male with a past medical history includes asthma and anxiety who presented to the ED with complaints of chest pain. The patient states that he has been experiencing chest pain for approximately one week. The patient describes the pain as unprovoked, intermittent, pressure-like in nature, and left-sided with radiation across to the right side of his chest. He denies any associated symptoms. Pain is reproducible upon palpation. Initial twelve lead electrocardiogram reveals sinus tachycardia with ST segment depression to inferolateral leads. Initial troponin level of 84ng/L with flat trend thereafter. UDS is negative. Chest x-ray shows NAD. Patient was admitted to the hospital. I am asked to consult on this patient. Family History: Diabetes mellitus G8 MOTHER Allergies: Coded Allergies: NO KNOWN ALLERGIES (Unverified , 10/02/12) Home Meds Active Scripts Polyethylene Glycol 3350 (Goodsense Clearlax) 17 Gm/Scoop Pow, 17 GM PO DAILY for 5 Days, #5 POW Prov:ELOY CALABRESE 03/01/24 Ondansetron Odt 4MG Tab (ZOFRAN PO) 4 Mg Tb, 4 MG PO Q6HPRN PRN, #15 TAB ODT TAB-DISSOLVE IN MOUTH, THEN SWALLOW Prov:ELOY CALABRESE 03/01/24 Current Medications Current Medications Medications (Trade) Dose Ordered Sig/Aleksandr Route PRN Reason Start Time Stop Time Status Last Admin Aspirin 81 mg DAILY PO 09/02/24 10:00 09/02/24 10:31 Sodium Chloride 1,000 ml @ 60 mls/hr [id number] IV 09/02/24 03:45 Acetaminophen/ Hydrocodone Bitart ([place] 5/325MG Tab) 1 tab Q4HP PRN PO MODERATE PAIN (4-6 PAIN SCALE) 09/02/24 03:45 Ondansetron HCl (Zofran) 4 mg Q4HP PRN IV NAUSEA / VOMITING 09/02/24 03:45 Docusate Sodium (Colace Capsule) 100 mg BIDPRN PRN PO FOR CONSTIPATION 09/02/24 03:45 Acetaminophen (Tylenol Tablet) 650 mg Q6HP PRN PO PAIN SCALE 1-3 OR TEMP>100.4 09/02/24 03:45 Morphine Sulfate 2 mg Q4HPRN PRN IV SEVERE PAIN (7-10 PAIN SCALE) 09/02/24 03:45 Nitroglycerin (Ntrostat Sublingual) 0.4 mg Q5MINP PRN SL FOR CHEST PAIN 09/02/24 04:15 Morphine Sulfate 2 mg Q30M PRN IV FOR CHEST PAIN 09/02/24 04:15 Review of Systems Constitutional: No symptom reported Ears, Nose, & Throat: No symptom reported Eyes: No symptom reported Neurological: No symptoms reported Pulmonary/Respiratory: No symptoms reported Cardiovascular: Chest pain Gastrointestinal: No symptom reported Genitourinary: No symptom reported Musculoskeletal: No symptom reported Skin: No symptom reported Psychiatric: No symptom reported Endocrine: No symptom reported Hematologic/Lymphatic: No symptom reported Vital Signs Vital Signs Date Time Temp Pulse Resp B/P (MAP) Pulse Ox O2 Delivery O2 Flow Rate FiO2 09/02/24 19:25 98.3 90 154/80 (104) 99 98.3 09/02/24 10:31 16 Room Air* 0 21 Physical Exam GENERAL: Awake, alert, oriented. LUNGS: Clear. CARDIOVASCULAR: Heart sounds are good. ABDOMEN: Soft. Labs/Diagnostic Data Labs Test 09/02/24 07:47 09/02/24 07:35 09/02/24 07:25 09/02/24 03:56 Range/Units Urine Color Yellow Yellow Urine Clarity Clear Clear Urine pH 5.5 5.0-9.0 Urine Specific [place] 1.026 1.001-1.035 Urine Protein Negative Negative Urine Ketones Negative Negative Urine Blood Negative Negative /uL Urine Nitrite Negative Negative Urine Bilirubin Negative Negative Urine Urobilinogen Normal Negative mg/dL Urine Leukocyte Esterase 1+ Negative /uL Urine RBC 2 0 - 3 /hpf Urine Microscopic WBC 21 H 0-3 /HPF Urine Squamous Epithelial Cells None seen <5 /hpf Urine Bacteria None seen None Seen /hpf Urine Glucose Normal Normal mg/dL Urine Opiates Screen Neg NEGATIVE Urine Fentanyl Screen Neg NEGATIVE Urine Barbiturates Screen Neg NEGATIVE Urine Phencyclidine Screen Neg NEGATIVE Urine Amphetamines Screen Neg NEGATIVE Urine Benzodiazepines Screen Neg NEGATIVE Urine Cocaine Screen Neg NEGATIVE Urine Cannabinoids Screen Neg NEGATIVE Triglycerides Level 64 < 150 mg/dL Cholesterol Level 171 < 200 mg/dL LDL Cholesterol 112 H < 100 mg/dL HDL Cholesterol 50 40-59 mg/dL Troponin I High Sensitivity 96 *H </=54 ng/L Thyroid Stimulating Hormone (TSH) 3.05 0.55-4.78 uIU/mL White Blood Count 8.8 4.4-10.8 10^3/uL Red Blood Count 5.35 4.5-5.90 10^6/uL Hemoglobin 15.9 13.5-17.5 g/dL Hematocrit 46.8 41.0-53.0 % Mean Corpuscular Volume 87.4 80.0-100.0 fL Mean Corpuscular Hemoglobin 29.7 28.0-32.0 pg Mean Corpuscular Hemoglobin Concent 34.0 32.0-36.0 g/dL Red Cell Distribution Width 14.4 H 11.8-14.3 % Platelet Count 312 140-450 10^3/uL Mean Platelet Volume 7.5 6.9-10.8 fL Neutrophils (%) (Auto) 60.5 37.0-80.0 % Lymphocytes (%) (Auto) 27.9 10.0-50.0 % Monocytes (%) (Auto) 9.8 0.0-12.0 % Eosinophils (%) (Auto) 1.2 0.0-7.0 % Basophils (%) (Auto) 0.6 0.0-2.0 % Neutrophils # (Auto) 5.3 1.6-8.6 10 ^3/uL Lymphocytes # (Auto) 2.5 0.4-5.4 10 ^3/uL Monocytes # (Auto) 0.9 0-1.3 10 ^3/uL Eosinophils # (Auto) 0.1 0-0.8 10 ^3/uL Basophils # (Auto) 0.1 0-0.2 10 ^3/uL Nucleated Red Blood Cells 0.1 % Erythrocyte Sedimentation Rate 6 0-20 mm/hr Sodium Level 138 136-145 mmol/L Potassium Level 4.1 3.5-5.1 mmol/L Chloride Level 103 98-107 mmol/L Carbon Dioxide Level 26 20-31 mmol/L Anion Gap 9 5-15 Blood Urea Nitrogen 16 9-23 mg/dL Creatinine 0.94 0.700-1.30 mg/dL Glomerular Filtration Rate Calc 119 >90 mL/min BUN/Creatinine Ratio 17.0 10.0-20.0 Serum Glucose 100 74-106 mg/dL Hemoglobin A1c 5.0 <5.7 % A1C Calcium Level 10.0 8.7-10.4 mg/dL Total Bilirubin 0.6 0.2-1.0 mg/dL Aspartate Amino Transferase (AST) 35 13-40 U/L Alanine Aminotransferase (ALT) 50 H 7-40 U/L Alkaline Phosphatase 84 46-116 U/L C-Reactive Protein High Sensitivity 0.50 <1.0 mg/dL Total Protein 7.6 5.7-8.2 g/dL Albumin 4.6 3.2-4.8 g/dL Test 09/01/24 23:33 09/01/24 21:29 Range/Units D-Dimer, Quantitative 0.25 0.0-0.49 mg/L FEU Magnesium Level 2.2 1.6-2.6 mg/dL B-Type Natriuretic Peptide 2.00 0-100 pg/mL Assessment Chest pain, rule out coronary ischemia. NSTEMI, likely type II. Rule out structural heart disease. Hyperlipidemia, newly diagnosed. Plan/Recommendation I agree with your ongoing assessment and care of plan. Patient has been seen by Yahaira Mendiola NP on my behalf, her and I discussed the plan with the patient. Telemetry reviewed. Echocardiogram to evaluate cardiac function. Chest pain protocol. ROSALINA score: 2 points. HEART score: 2 points. Cardiac surveillance. We will schedule the patient for a nuclear stress test at first availability. Additional plan as per the hospital course. A total of 45 minutes was spent reviewing the patient record, examining the patient, making a diagnostic and therapeutic plan, discussing this plan with medical personnel, following up on diagnostic studies and following the patient for clinical stability excluding any and all procedures. At least 50% of this time was spent in direct, [id number] contact. Plan discussed with: Patient NYHA Physical activity limitations: NA Date of Service: Sep 02, 2024 Billing Provider: GISSELL MORTON MD Cardiology Common Codes: 26185-[id number] INP/OBS CARE (High) Cardiology Consultation Codes: [id number] CONSULT <45MIN GISSELL MORTON MD Sep 02, 2024 22:02
[2024-09-03] VITALS (11 sets, daily range): BP systolic 113–131; BP diastolic 46–84; PULSE 66–96; RESP 16–20; TEMP 97.6–98.8; O2SAT 95–100
[2024-09-03 11:28] LABS: Basophils # (auto) 0 10 ^3/uL (0-0.2); Basophils % (auto) 0.2 % (0.0-2.0); Eosinophils # (auto) 0.1 10 ^3/uL (0-0.8); Eosinophils % (auto) 1.5 % (0.0-7.0); Hematocrit 46.6 % (41.0-53.0); Hemoglobin 15.5 g/dL (13.5-17.5); Lymphocytes # (auto) 1.5 10 ^3/uL (0.4-5.4); Lymphocytes % (auto) 20.2 % (10.0-50.0); Mean Corpuscular Hemoglobin 29.4 pg (28.0-32.0); Mean Corpuscular Hgb Conc. 33.2 g/dL (32.0-36.0); Mean Corpuscular Volume 88.4 fL (80.0-100.0); Monocytes # (auto) 0.9 10 ^3/uL (0-1.3); Monocytes % (auto) 11.5 % (0.0-12.0); Neutrophils % (auto) 66.6 % (37.0-80.0); Nucleated Red Blood Cells % 0.1 %; Platelet Count (auto) 271 10^3/uL (140-450); Red Blood Cells 5.27 10^6/uL (4.5-5.90); Red Cell Distribution Width 14.2 % (11.8-14.3); White Blood Cell 7.5 10^3/uL (4.4-10.8)
[2024-09-03 11:47] LABS: Albumin 4.4 g/dL (3.2-4.8); Alkaline Phosphatase 80 U/L (46-116); Aspartate Aminotransferase 20 U/L (13-40); BUN/Creatinine Ratio 14.4 (10.0-20.0); Blood Urea Nitrogen 15 mg/dL (9-23); Calcium 9.8 mg/dL (8.7-10.4); Glucose 104 mg/dL (74-106); Potassium 4.4 mmol/L (3.5-5.1); Sodium 138 mmol/L (136-145)
[2024-09-03 11:48] LABS: Total Protein 7.2 g/dL (5.7-8.2)
[2024-09-03 11:50] LABS: Carbon Dioxide 27 mmol/L (20-31)
[2024-09-03 11:51] LABS: Bilirubin, Total 1.3 mg/dL (0.2-1.0)
[2024-09-03 11:52] LABS: Alanine Aminotransferase 41 U/L (7-40)
[2024-09-03 13:05] LABS: Anion Gap 8 (5-15); Chloride 103 mmol/L (98-107)
--- NOTE | 2024-09-03 23:15 | DVHPN2 ---
Progress Note - Dictate Date Seen: Sep 03, 2024 Medical Necessity Reason Pt with a Central, PICC or Fol: No Subjective Patient was seen and evaluated in follow up. Patient is complaining of RUE pain and intermittent chest pain. ALT 41. Echocardiogram is pending. Telemetry reviewed. vital signs Vital Sign Date Time Temp Pulse Resp B/P (MAP) Pulse Ox O2 Delivery O2 Flow Rate FiO2 09/03/24 20:00 Room Air* 0 21 09/03/24 16:30 97.7 78 16 127/51 (76) 96 97.7 Total Intake and Output 09/02/24 09/02/24 09/03/24 15:00 23:00 07:00 Intake Total 0 ml Balance 0 ml medications Current Medications Medications Dose Ordered Sig/Aleksandr Route Start Time Stop Time Status Last Admin Dose Admin Aspirin 81 mg DAILY PO 09/02/24 10:00 09/03/24 10:10 81 MG Sodium Chloride 1,000 ml @ 60 mls/hr [id number] IV 09/02/24 03:45 09/03/24 13:21 60 MLS/HR Acetaminophen/ Hydrocodone Bitart 1 tab Q4HP PRN PO 09/02/24 03:45 Ondansetron HCl 4 mg Q4HP PRN IV 09/02/24 03:45 Docusate Sodium 100 mg BIDPRN PRN PO 09/02/24 03:45 Acetaminophen 650 mg Q6HP PRN PO 09/02/24 03:45 Morphine Sulfate 2 mg Q4HPRN PRN IV 09/02/24 03:45 Nitroglycerin 0.4 mg Q5MINP PRN SL 09/02/24 04:15 Morphine Sulfate 2 mg Q30M PRN IV 09/02/24 04:15 objective GENERAL: Awake, alert, oriented. LUNGS: Clear. CARDIOVASCULAR: Heart sounds are good. ABDOMEN: Soft. laboratory and microbiology Laboratory Tests 09/03/24 10:55 Test 09/03/24 10:55 Range/Units Serum Glucose 104 74-106 mg/dL Problem List Chest pain, rule out coronary ischemia. NSTEMI, likely type II. Rule out structural heart disease. Hyperlipidemia, newly diagnosed. Assessment/Plan Continued all current supportive medical care. Morphine and [place] for pain management. Aspirin. Nitro SL. We will schedule the patient for a nuclear stress test at first availability. Additional plan as per the hospital course. Plan discussed with: Patient GISSELL MORTON MD Sep 03, 2024 22:44
[2024-09-04] VITALS (9 sets, daily range): BP systolic 120–134; BP diastolic 60–82; PULSE 71–100; RESP 14–20; TEMP 97.5–98.6; O2SAT 94–98
--- NOTE | 2024-09-04 15:36 | DVHSR ---
APPROVED REPORT EXAM: Two-dimensional and M-mode echocardiogram with Doppler and color Doppler. Blood Pressure: 144/76 mmHg INDICATION Evaluate cardiac function RISK FACTORS Height: 5'8", Weight: 145 DIMENSIONS LVDd4.4 (3.8-5.7cm)LA (2D)3.6 (1.9-4.0cm)Aortic Root2.6 (2.0-3.7cm) LVDs3.0 (2.5-4.0cm)LA (MM) (1.9-4.0cm)Aortic Cusp Exc1.8 (1.5-2.0cm) EF (%) 60.0 (55-70%)Rt. Atrium4.3 (1.9-4.0cm)Asc. Aorta2.3 cm IVSd0.9 (0.7-1.1cm)RV (D) (1.8-2.4cm) PWd1.1 (0.7-1.1cm) Mitral Valve MitralMitral Stenosis E wave0.79m/sMV Mean GR.mmHg A wave0.66m/sMV Peak GR.mmHg E/A ratio1.22D MVAcm2 DECEL [id number] 1/2 [place] Aortic Valve Aortic ValveAortic Stenosis V11.26m/[place] Mean GR.5mmHg V21.43m/[place] Peak GR.8mmHg LVOT Diameter2.0 (1.8-2.4cm)Doppler AVA2.77cm2 Pulmonic Valve V21.23m/s Conclusion Sinus Rhythm Normal chamaber sizes Normal Valves LV function is normal at 65% with normal RV functionn. No doppler anomalies No Pericardial effusion, masses or vegetations. 3
--- NOTE | 2024-09-04 21:56 | DVHPN2 ---
Subjective The patient is seen and examined at bedside.. No chest pain today. Reviewed: Care Plan, H&P, Labs, Medications Changes from previous H/P or p: No Changes General: Per HPI Eyes: No Pain, No Vision change, No Conjunctivae inflammation, No Eyelid inflammation, No Other, No Redness ENT: No Ear pain, No Ear discharge, No Nose pain, No Nose discharge, No Nose congestion, No Mouth pain, No Mouth swelling, No Throat pain, No Throat swelling, No Other Cardiovascular: Chest Pain; No Palpitations, No Orthopnea, No Paroxysmal Noc. Dyspnea, No Edema, No Lt Headedness, No Other Respiratory: No Cough, No Dry, No Shortness of breath, No SOB with excertion, No Wheezing, No Hemoptysis, No Pleuritic Pain, No Sputum, No Other Gastrointestinal: No Nausea, No Vomiting, No Abdominal Pain, No Diarrhea, No Constipation, No Melena, No Hematochezia, No Other Genitourinary: No Dysuria, No Frequency, No Incontinence, No Hematuria, No Retention, No Other Musculoskeletal: No other, No neck pain, No shoulder pain, No arm pain, No back pain, No hand pain, No leg pain, No foot pain Skin: No Rash, No Lesions, No Jaundice, No Bruising, No Other Objective Vitals Vital Signs Date Time Temp Pulse Resp B/P (MAP) Pulse Ox O2 Delivery O2 Flow Rate FiO2 09/03/24 20:56 98.6 92 18 134/82 (99) 98 98.6 09/03/24 20:00 Room Air* 0 21 Intake/Output Intake and Output 09/04/24 07:00 Intake Total 1000 ml Balance 1000 ml Intake Oral 0 ml IV Total 1000 ml # Voids 1 General Appearance: Alert, Oriented X3, Cooperative, mild distress HEENT: Atraumatic, PERRLA Lungs: Clear to auscultation, Normal air movement Cardiovascular: Normal S1, Normal S2 Abdomen: Normal bowel sounds Musculoskeletal: Normal sensory function, Normal motor function Neuro: Normal speech Psych/Mental Status: Mental status NL, Mood NL Medications Current Medications Medications Dose Ordered Sig/Aleksandr Route Start Time Stop Time Status Last Admin Dose Admin Aspirin 81 mg DAILY PO 09/02/24 10:00 09/04/24 09:24 81 MG Sodium Chloride 1,000 ml @ 60 mls/hr [id number] IV 09/02/24 03:45 09/04/24 05:32 60 MLS/HR Acetaminophen/ Hydrocodone Bitart 1 tab Q4HP PRN PO 09/02/24 03:45 Ondansetron HCl 4 mg Q4HP PRN IV 09/02/24 03:45 Docusate Sodium 100 mg BIDPRN PRN PO 09/02/24 03:45 Acetaminophen 650 mg Q6HP PRN PO 09/02/24 03:45 Morphine Sulfate 2 mg Q4HPRN PRN IV 09/02/24 03:45 Nitroglycerin 0.4 mg Q5MINP PRN SL 09/02/24 04:15 Morphine Sulfate 2 mg Q30M PRN IV 09/02/24 04:15 Laboratory Results Laboratory Tests 09/03/24 10:55 Urinalysis Test 09/02/24 07:47 Urine Color Yellow (Yellow) Urine Clarity Clear (Clear) Urine pH 5.5 (5.0-9.0) Urine Specific [place] 1.026 (1.001-1.035) Urine Protein Negative (Negative) Urine Ketones Negative (Negative) Urine Blood Negative /uL (Negative) Urine Nitrite Negative (Negative) Urine Bilirubin Negative (Negative) Urine Urobilinogen Normal mg/dL (Negative) Urine Leukocyte Esterase 1+ /uL (Negative) Urine RBC 2 /hpf (0 - 3) Urine Microscopic WBC 21 /HPF (0-3) H Urine Squamous Epithelial Cells None seen /hpf (<5) Urine Bacteria None seen /hpf (None Seen) Urine Glucose Normal mg/dL (Normal) Labs and/or images reviewed: Labs reviewed by me Assessment/Plan Assessment/Plan Chest pain syndrome need to rule out ACS Elevation of troponin level Continuing current management. We will review 2D echo. Waiting for flooring mechanic to see the patient. This medical document was created using an electronic medical record system with [employer] direct computerized dictation system. Although this document has been carefully reviewed, there may still be some phonetic and typographical errors. These areas are purely typographical due to imperfections of the software programs, and do not reflect any compromise in the patient's medical care. Plan discussed with: Patient Date of Service: Sep 03, 2024 Billing Provider: EJ ADEN MD Common Visit Codes: [id number] INP/OBS CARE(HIGH) EJ ADEN MD Sep 04, 2024 21:56
--- NOTE | 2024-09-04 22:00 | DVHPN2 ---
Subjective The patient is seen and examined at bedside.. No chest pain today. Reviewed: Care Plan, H&P, Labs, Medications Changes from previous H/P or p: No Changes General: Per HPI Eyes: No Pain, No Vision change, No Conjunctivae inflammation, No Eyelid inflammation, No Other, No Redness ENT: No Ear pain, No Ear discharge, No Nose pain, No Nose discharge, No Nose congestion, No Mouth pain, No Mouth swelling, No Throat pain, No Throat swelling, No Other Cardiovascular: Chest Pain; No Palpitations, No Orthopnea, No Paroxysmal Noc. Dyspnea, No Edema, No Lt Headedness, No Other Respiratory: No Cough, No Dry, No Shortness of breath, No SOB with excertion, No Wheezing, No Hemoptysis, No Pleuritic Pain, No Sputum, No Other Gastrointestinal: No Nausea, No Vomiting, No Abdominal Pain, No Diarrhea, No Constipation, No Melena, No Hematochezia, No Other Genitourinary: No Dysuria, No Frequency, No Incontinence, No Hematuria, No Retention, No Other Musculoskeletal: No other, No neck pain, No shoulder pain, No arm pain, No back pain, No hand pain, No leg pain, No foot pain Skin: No Rash, No Lesions, No Jaundice, No Bruising, No Other Objective Vitals Vital Signs Date Time Temp Pulse Resp B/P (MAP) Pulse Ox O2 Delivery O2 Flow Rate FiO2 09/04/24 20:56 98.6 92 18 134/82 (99) 98 98.6 09/04/24 20:00 Room Air* 0 21 Intake/Output Intake and Output 09/04/24 07:00 Intake Total 1000 ml Balance 1000 ml Intake Oral 0 ml IV Total 1000 ml # Voids 1 General Appearance: Alert, Oriented X3, Cooperative, mild distress HEENT: Atraumatic, PERRLA Lungs: Clear to auscultation, Normal air movement Cardiovascular: Normal S1, Normal S2 Abdomen: Normal bowel sounds Musculoskeletal: Normal sensory function, Normal motor function Neuro: Normal speech Psych/Mental Status: Mental status NL, Mood NL Medications Current Medications Medications Dose Ordered Sig/Aleksandr Route Start Time Stop Time Status Last Admin Dose Admin Aspirin 81 mg DAILY PO 09/02/24 10:00 09/04/24 09:24 81 MG Sodium Chloride 1,000 ml @ 60 mls/hr [id number] IV 09/02/24 03:45 09/04/24 05:32 60 MLS/HR Acetaminophen/ Hydrocodone Bitart 1 tab Q4HP PRN PO 09/02/24 03:45 Ondansetron HCl 4 mg Q4HP PRN IV 09/02/24 03:45 Docusate Sodium 100 mg BIDPRN PRN PO 09/02/24 03:45 Acetaminophen 650 mg Q6HP PRN PO 09/02/24 03:45 Morphine Sulfate 2 mg Q4HPRN PRN IV 09/02/24 03:45 Nitroglycerin 0.4 mg Q5MINP PRN SL 09/02/24 04:15 Morphine Sulfate 2 mg Q30M PRN IV 09/02/24 04:15 Laboratory Results Laboratory Tests 09/03/24 10:55 Urinalysis Test 09/02/24 07:47 Urine Color Yellow (Yellow) Urine Clarity Clear (Clear) Urine pH 5.5 (5.0-9.0) Urine Specific [place] 1.026 (1.001-1.035) Urine Protein Negative (Negative) Urine Ketones Negative (Negative) Urine Blood Negative /uL (Negative) Urine Nitrite Negative (Negative) Urine Bilirubin Negative (Negative) Urine Urobilinogen Normal mg/dL (Negative) Urine Leukocyte Esterase 1+ /uL (Negative) Urine RBC 2 /hpf (0 - 3) Urine Microscopic WBC 21 /HPF (0-3) H Urine Squamous Epithelial Cells None seen /hpf (<5) Urine Bacteria None seen /hpf (None Seen) Urine Glucose Normal mg/dL (Normal) Labs and/or images reviewed: Labs reviewed by me Assessment/Plan Assessment/Plan Chest pain syndrome need to rule out ACS Elevation of troponin level Continuing current management. Echo showed: Sinus Rhythm. Normal chamaber sizes Normal Valves. LV function is normal at 65% with normal RV functionn. No doppler anomalies. No Pericardial effusion, masses or vegetations Waiting for stress test to be done. This medical document was created using an electronic medical record system with [employer] direct computerized dictation system. Although this document has been carefully reviewed, there may still be some phonetic and typographical errors. These areas are purely typographical due to imperfections of the software programs, and do not reflect any compromise in the patient's medical care. Plan discussed with: Patient Date of Service: Sep 04, 2024 Billing Provider: EJ ADEN MD Common Visit Codes: [id number] INP/OBS CARE(HIGH) EJ ADEN MD Sep 04, 2024 22:00
--- NOTE | 2024-09-04 23:22 | DVHPN2 ---
Progress Note - Dictate Date Seen: Sep 04, 2024 Medical Necessity Reason Pt with a Central, PICC or Fol: No Subjective Patient was seen and evaluated in follow up. Patient is complaining of RUE pain and intermittent chest pain. Echocardiogram showed an EF of 65%. Telemetry reviewed. vital signs Vital Sign Date Time Temp Pulse Resp B/P (MAP) Pulse Ox O2 Delivery O2 Flow Rate FiO2 09/04/24 13:00 98.1 85 18 125/62 (83) 98 98.1 09/04/24 08:00 Room Air* 0 21 Total Intake and Output 09/03/24 09/03/24 09/04/24 15:00 23:00 07:00 Intake Total 1000 ml Balance 1000 ml medications Current Medications Medications Dose Ordered Sig/Aleksandr Route Start Time Stop Time Status Last Admin Dose Admin Aspirin 81 mg DAILY PO 09/02/24 10:00 09/04/24 09:24 81 MG Sodium Chloride 1,000 ml @ 60 mls/hr [id number] IV 09/02/24 03:45 09/04/24 05:32 60 MLS/HR Acetaminophen/ Hydrocodone Bitart 1 tab Q4HP PRN PO 09/02/24 03:45 Ondansetron HCl 4 mg Q4HP PRN IV 09/02/24 03:45 Docusate Sodium 100 mg BIDPRN PRN PO 09/02/24 03:45 Acetaminophen 650 mg Q6HP PRN PO 09/02/24 03:45 Morphine Sulfate 2 mg Q4HPRN PRN IV 09/02/24 03:45 Nitroglycerin 0.4 mg Q5MINP PRN SL 09/02/24 04:15 Morphine Sulfate 2 mg Q30M PRN IV 09/02/24 04:15 objective GENERAL: Awake, alert, oriented. LUNGS: Clear. CARDIOVASCULAR: Heart sounds are good. ABDOMEN: Soft. laboratory and microbiology Laboratory Tests 09/03/24 10:55 Test 09/03/24 10:55 Range/Units Serum Glucose 104 74-106 mg/dL Problem List Chest pain, rule out coronary ischemia. NSTEMI, likely type II. Rule out structural heart disease. Hyperlipidemia, newly diagnosed. Assessment/Plan Continued all current supportive medical care. Morphine and [place] for pain management. Aspirin. Nitro SL. We will schedule the patient for a nuclear stress test at first availability. Additional plan as per the hospital course. Dietary Evaluation Review Recommendations by RD: Dietary education by RD Comments: 1) Encourage patient to decrease intake of saturated fats. Substitute olive oil, canola oil, avocado oil, for butter, lard, shortening, coconut oil, or palm oil. Select lean sources of protein. For example, skinless chicken breast; beef or pork tenderloin; fish; low-fat cheese; non-fat [place] yogurt; edamame; 90/10 ground beef; etc. Limit consumption of processed foods 2) Consider fiber supplement such as psyllium husk 3) Physical activity as tolerated per provider's recommendations 4) F/u with cardiology Expected Outcomes/Goals: 1) labs and appetite to improve 2) f/u in 3-5 days Plan discussed with: Patient GISSELL MORTON MD Sep 04, 2024 16:52
[2024-09-05] VITALS (8 sets, daily range): BP systolic 122–145; BP diastolic 63–74; PULSE 56–89; RESP 17–20; TEMP 97.3–98.5; O2SAT 93–99
--- NOTE | 2024-09-05 10:32 | DVHCARD ---
Cardiology Stress Test [place] Treadmill Stress Test [place] Referring MD: MELINA Mendiola Protocol: Min (with cardiolite) Reason for referral: Chest Pain Target heart Rate:@85%: 170 Percent MPHR: 200 METS: 10.10 Resting Heart rate: 77 Resting Blood Pressure: 162/87 Exercise Heart Rate: 157 Baseline EKG: Normal sinus rhythm Stress EKG: Sinus tachycardia Functional Capacity: Good Normal Heart Rate Response: Adequate Blood Pressure Response: Hypertensive Clinical response: Non-ischemic Arrhythmia?: No Cardiolite Injected?: Yes ST-T Changes: Non/Minimal Probability of Inducible [place]sche: Perfusion result pending Date of Service: Sep 05, 2024 Billing Provider: BHAVANI MENDIOLA Cardiology Common Codes: PROCEDURE ONLY Treadmill W/Cardiolite Nuclear: [id number], INTERP, RPT BHAVANI MENDIOLA Sep 05, 2024 10:32
--- NOTE | 2024-09-05 14:28 | DVHPN2 ---
Subjective Continues to have intermittent chest pain at rest. Reports it being substernal with radiation to left shoulder and arm. Reviewed: Care Plan, H&P, Labs, Medications Changes from previous H/P or p: No Changes General: Per HPI Eyes: No Pain, No Vision change, No Conjunctivae inflammation, No Eyelid inflammation, No Other, No Redness ENT: No Ear pain, No Ear discharge, No Nose pain, No Nose discharge, No Nose congestion, No Mouth pain, No Mouth swelling, No Throat pain, No Throat swelling, No Other Cardiovascular: Chest Pain; No Palpitations, No Orthopnea, No Paroxysmal Noc. Dyspnea, No Edema, No Lt Headedness, No Other Respiratory: No Cough, No Dry, No Shortness of breath, No SOB with excertion, No Wheezing, No Hemoptysis, No Pleuritic Pain, No Sputum, No Other Gastrointestinal: No Nausea, No Vomiting, No Abdominal Pain, No Diarrhea, No Constipation, No Melena, No Hematochezia, No Other Genitourinary: No Dysuria, No Frequency, No Incontinence, No Hematuria, No Retention, No Other Musculoskeletal: No other, No neck pain, No shoulder pain, No arm pain, No back pain, No hand pain, No leg pain, No foot pain Skin: No Rash, No Lesions, No Jaundice, No Bruising, No Other Objective Vitals Vital Signs Date Time Temp Pulse Resp B/P (MAP) Pulse Ox O2 Delivery O2 Flow Rate FiO2 09/05/24 13:00 97.8 65 17 137/74 (95) 98 97.8 09/05/24 08:00 Room Air* 0 21 Intake/Output Intake and Output 09/05/24 07:00 Intake Total 0 ml Balance 0 ml Intake Oral 0 ml General Appearance: Alert, Oriented X3, Cooperative, mild distress HEENT: Atraumatic, PERRLA Lungs: Clear to auscultation, Normal air movement Cardiovascular: Normal S1, Normal S2 Abdomen: Normal bowel sounds Musculoskeletal: Normal sensory function, Normal motor function Neuro: Normal speech Psych/Mental Status: Mental status NL, Mood NL Medications Current Medications Medications Dose Ordered Sig/Aleksandr Route Start Time Stop Time Status Last Admin Dose Admin Aspirin 81 mg DAILY PO 09/02/24 10:00 09/04/24 09:24 81 MG Sodium Chloride 1,000 ml @ 60 mls/hr [id number] IV 09/02/24 03:45 09/04/24 22:19 60 MLS/HR Acetaminophen/ Hydrocodone Bitart 1 tab Q4HP PRN PO 09/02/24 03:45 Ondansetron HCl 4 mg Q4HP PRN IV 09/02/24 03:45 Docusate Sodium 100 mg BIDPRN PRN PO 09/02/24 03:45 Acetaminophen 650 mg Q6HP PRN PO 09/02/24 03:45 Morphine Sulfate 2 mg Q4HPRN PRN IV 09/02/24 03:45 Nitroglycerin 0.4 mg Q5MINP PRN SL 09/02/24 04:15 Morphine Sulfate 2 mg Q30M PRN IV 09/02/24 04:15 Laboratory Results Laboratory Tests 09/03/24 10:55 Urinalysis Test 09/02/24 07:47 Urine Color Yellow (Yellow) Urine Clarity Clear (Clear) Urine pH 5.5 (5.0-9.0) Urine Specific [place] 1.026 (1.001-1.035) Urine Protein Negative (Negative) Urine Ketones Negative (Negative) Urine Blood Negative /uL (Negative) Urine Nitrite Negative (Negative) Urine Bilirubin Negative (Negative) Urine Urobilinogen Normal mg/dL (Negative) Urine Leukocyte Esterase 1+ /uL (Negative) Urine RBC 2 /hpf (0 - 3) Urine Microscopic WBC 21 /HPF (0-3) H Urine Squamous Epithelial Cells None seen /hpf (<5) Urine Bacteria None seen /hpf (None Seen) Urine Glucose Normal mg/dL (Normal) Labs and/or images reviewed: Labs reviewed by me, Image(s) reviewed by me Assessment/Plan Assessment/Plan Impression: -chest pain, NSTEMI, probably type 2 with unknown etiology at this time Plan: Events: Patient continues to have intermittent substernal chest pain. Questionable costochondritis. Trial of IV Toradol. -cardiology consultation : Stress test performed today. Results pending -CT scan of the chest : No acute changes -inflammatory markers negative -discharge once cleared by Cardiology Total time spent with patient discussing and formulating plan of care: 35 minutes. This medical document was created using an electronic medical record system with [email or web address] dictation system. Although this document has been carefully reviewed, there may still be some phonetic and typographical errors. These areas are purely typographical due to imperfections of the software programs, and do not reflect any compromise in the patient's medical care. Plan discussed with: Patient, Other (RN) Date of Service: Sep 05, 2024 Billing Provider: ROSARIO DEVRIES NP Common Visit Codes: [id number] INP/OBS CARE(HIGH) ROSARIO DEVRIES NP Sep 05, 2024 14:28
--- NOTE | 2024-09-05 14:45 | DVHSR ---
APPROVED REPORT Exam: Nuclear Stress Test Indication: Chest pain Stress Tech: Sharon Benedict Ht: 5 ft 8 in Wt: 145 lbs BSA: 1.78 m2 BMI: 22.04 Medical History Medical History: Hyperlipidemia, ASTHMA, ANXIETY, NSTEMI II, EF 65% Allergies: No known drug allergies Stress Test Details Stress Test: Exercise stress testing was performed using a Min protocol. Reason for pharmacologic stress test: CP. HR Resting HR: 87 bpmMax Heart Rate (APMHR): 200.833771 bpm Max HR Achieved: 157 bpmTarget HR (85% APMHR): 170.290504 bpm % of APMHR: 78.50 Recovery HR: 99 bpm BP Resting BP: 129/87 mmHg Recovery BP: 157/99 mmHg ECG Resting ECG: Sinus Rhythm Clinical Reason for Termination: Completed protocol Exercise duration: 9 min sec Exercise capacity: 10.10 METs Nurse Comments Received patient ambulatory, A&O x4 and on RA. Patient is connected to manager cardiac and vitals ar e WNL. For furhter details please refer to stress test documentation and cardio-neuro procedural note s. LT AC 22g PIV flushes well. Reviewed POC and patient verbalized understanding. Treadmill stress test performed per protocol with MELINA NICHOLSON present during test. services tech at patient' s side to administer Cardioloite Treadmill stress test performed per protocol. services tech administered Cardiolite. Patient tolerated well and all vitals returned to baseline. Patient transferred back to Nuclear [facility] in stable condition. Stress ECG Conclusion lvef 55% no ecg evidence of ischemia no severe stress induced ischemia no nuclear imaging NM EXAM: Myocardial Perfusion REST/STRESS Imaging Protocol: Rest Tc-99m/Stress Tc-99m 1 day Resting Data Rest SPECT myocardial perfusion imaging was performed in supine position 60 minutes following the int ravenous injection of 11.3 mCi of Tc-99m Sestamibi. Time of rest injection: 0815 Time of rest imagin Administration Route: IV Administration Site: Left AC Exercise Stress At peak stress, the patient was injected intravenously with 31.3mCi of Tc-99m Sestamibi. Time of stress injection: 0936 Time of stress imagin Administration Route: IV Administration Site: Left AC Patient continued to exercise for 9 minute(s). Gated Stress SPECT was performed 30 minutes after stress injection. The images were gated to evaluate regional wall motion and calculate left ventricular ejection fracti on. Stress only was performed in the Supine position. Nuclear Conclusion Clinical Findings: negative for ischemia Nuclear Findings: negative for ischemia lvef 55% no ecg evidence of ischemia no severe stress induced ischemia no nuclear imaging
[2024-09-05] MEDS: KETOROLAC TROMETH 30 MG/ML 1ML VIAL IV ONE (16:19)
--- NOTE | 2024-09-05 22:02 | DVHPN2 ---
Progress Note - Dictate Date Seen: Sep 05, 2024 Medical Necessity Reason Pt with a Central, PICC or Fol: No Subjective Patient was seen and evaluated in follow up. Patient is complaining of intermittent chest pain at rest. Reports it is substernal with radiation to left shoulder and arm. Patient started on a cardiac diet. Telemetry reviewed. vital signs Vital Sign Date Time Temp Pulse Resp B/P (MAP) Pulse Ox O2 Delivery O2 Flow Rate FiO2 09/05/24 20:57 98.1 83 20 138/69 (92) 97 98.1 09/05/24 08:00 Room Air* 0 21 Total Intake and Output 09/04/24 09/04/24 09/05/24 15:00 23:00 07:00 Intake Total 0 ml 0 ml Balance 0 ml 0 ml medications Current Medications Medications Dose Ordered Sig/Aleksandr Route Start Time Stop Time Status Last Admin Dose Admin Aspirin 81 mg DAILY PO 09/02/24 10:00 09/04/24 09:24 81 MG Sodium Chloride 1,000 ml @ 60 mls/hr [id number] IV 09/02/24 03:45 09/05/24 15:05 60 MLS/HR Acetaminophen/ Hydrocodone Bitart 1 tab Q4HP PRN PO 09/02/24 03:45 Ondansetron HCl 4 mg Q4HP PRN IV 09/02/24 03:45 Docusate Sodium 100 mg BIDPRN PRN PO 09/02/24 03:45 Acetaminophen 650 mg Q6HP PRN PO 09/02/24 03:45 Morphine Sulfate 2 mg Q4HPRN PRN IV 09/02/24 03:45 Nitroglycerin 0.4 mg Q5MINP PRN SL 09/02/24 04:15 Morphine Sulfate 2 mg Q30M PRN IV 09/02/24 04:15 objective GENERAL: Awake, alert, oriented. LUNGS: Clear. CARDIOVASCULAR: Heart sounds are good. ABDOMEN: Soft. laboratory and microbiology Laboratory Tests 09/03/24 10:55 Test 09/03/24 10:55 Range/Units Serum Glucose 104 74-106 mg/dL Problem List Chest pain, rule out coronary ischemia. NSTEMI, likely type II. Rule out structural heart disease. Hyperlipidemia, newly diagnosed. Assessment/Plan Continued all current supportive medical care. Morphine and [place] for pain management. Aspirin. Nitro SL. We will schedule the patient for a nuclear stress test at first availability. Additional plan as per the hospital course. Dietary Evaluation Review Recommendations by RD: Dietary education by RD Comments: 1) Encourage patient to decrease intake of saturated fats. Substitute olive oil, canola oil, avocado oil, for butter, lard, shortening, coconut oil, or palm oil. Select lean sources of protein. For example, skinless chicken breast; beef or pork tenderloin; fish; low-fat cheese; non-fat Urdu yogurt; edamame; 90/10 ground beef; etc. Limit consumption of processed foods 2) Consider fiber supplement such as psyllium husk 3) Physical activity as tolerated per provider's recommendations 4) F/u with cardiology Expected Outcomes/Goals: 1) labs and appetite to improve 2) f/u in 3-5 days Plan discussed with: Patient GISSELL MORTON MD Sep 05, 2024 22:02
[2024-09-06 01:00] VITALS: BP 137/69; PULSE 84; RESP 20; TEMP 98; O2SAT 96
[2024-09-06 05:00] VITALS: BP 106/56; PULSE 91; RESP 20; TEMP 97.6; O2SAT 97
[2024-09-06 08:00] VITALS: PULSE 52; PULSE 79; RESP 18; O2SAT 98
[2024-09-06 09:00] VITALS: BP 128/65; PULSE 74; RESP 20; TEMP 97.7; O2SAT 97
--- NOTE | 2024-09-06 12:18 | DVHDS2 ---
Discharge Summary Date of Admission Sep 02, 2024 at 04:10 Date of Discharge: Sep 06, 2024 Admitting Diagnosis Acute chest pain Labs/Diagnostic Data: Laboratory Results Test 09/03/24 10:55 09/02/24 07:47 09/02/24 07:35 09/02/24 07:25 White Blood Count 7.5 10^3/uL (4.4-10.8) Red Blood Count 5.27 10^6/uL (4.5-5.90) Hemoglobin 15.5 g/dL (13.5-17.5) Hematocrit 46.6 % (41.0-53.0) Mean Corpuscular Volume 88.4 fL (80.0-100.0) Mean Corpuscular Hemoglobin 29.4 pg (28.0-32.0) Mean Corpuscular Hemoglobin Concent 33.2 g/dL (32.0-36.0) Red Cell Distribution Width 14.2 % (11.8-14.3) Platelet Count 271 10^3/uL (140-450) Mean Platelet Volume 7.5 fL (6.9-10.8) Neutrophils (%) (Auto) 66.6 % (37.0-80.0) Lymphocytes (%) (Auto) 20.2 % (10.0-50.0) Monocytes (%) (Auto) 11.5 % (0.0-12.0) Eosinophils (%) (Auto) 1.5 % (0.0-7.0) Basophils (%) (Auto) 0.2 % (0.0-2.0) Neutrophils # (Auto) 5.0 10 ^3/uL (1.6-8.6) Lymphocytes # (Auto) 1.5 10 ^3/uL (0.4-5.4) Monocytes # (Auto) 0.9 10 ^3/uL (0-1.3) Eosinophils # (Auto) 0.1 10 ^3/uL (0-0.8) Basophils # (Auto) 0 10 ^3/uL (0-0.2) Nucleated Red Blood Cells 0.1 % Sodium Level 138 mmol/L (136-145) Potassium Level 4.4 mmol/L (3.5-5.1) Chloride Level 103 mmol/L (98-107) Carbon Dioxide Level 27 mmol/L (20-31) Anion Gap 8 (5-15) Blood Urea Nitrogen 15 mg/dL (9-23) Creatinine 1.04 mg/dL (0.700-1.30) Glomerular Filtration Rate Calc 105 mL/min (>90) BUN/Creatinine Ratio 14.4 (10.0-20.0) Serum Glucose 104 mg/dL (74-106) Calcium Level 9.8 mg/dL (8.7-10.4) Total Bilirubin 1.3 mg/dL (0.2-1.0) Aspartate Amino Transferase (AST) 20 U/L (13-40) Alanine Aminotransferase (ALT) 41 U/L (7-40) Alkaline Phosphatase 80 U/L (46-116) Total Protein 7.2 g/dL (5.7-8.2) Albumin 4.4 g/dL (3.2-4.8) Urine Color Yellow (Yellow) Urine Clarity Clear (Clear) Urine pH 5.5 (5.0-9.0) Urine Specific [place] 1.026 (1.001-1.035) Urine Protein Negative (Negative) Urine Ketones Negative (Negative) Urine Blood Negative /uL (Negative) Urine Nitrite Negative (Negative) Urine Bilirubin Negative (Negative) Urine Urobilinogen Normal mg/dL (Negative) Urine Leukocyte Esterase 1+ /uL (Negative) Urine RBC 2 /hpf (0 - 3) Urine Microscopic WBC 21 /HPF (0-3) Urine Squamous Epithelial Cells None seen /hpf (<5) Urine Bacteria None seen /hpf (None Seen) Urine Glucose Normal mg/dL (Normal) Urine Opiates Screen Neg (NEGATIVE) Urine Fentanyl Screen Neg (NEGATIVE) Urine Barbiturates Screen Neg (NEGATIVE) Urine Phencyclidine Screen Neg (NEGATIVE) Urine Amphetamines Screen Neg (NEGATIVE) Urine Benzodiazepines Screen Neg (NEGATIVE) Urine Cocaine Screen Neg (NEGATIVE) Urine Cannabinoids Screen Neg (NEGATIVE) Triglycerides Level 64 mg/dL (< 150) Cholesterol Level 171 mg/dL (< 200) LDL Cholesterol 112 mg/dL (< 100) HDL Cholesterol 50 mg/dL (40-59) Troponin I High Sensitivity 96 ng/L (</=54) Thyroid Stimulating Hormone (TSH) 3.05 uIU/mL (0.55-4.78) Test 09/02/24 03:56 09/01/24 23:33 09/01/24 21:29 Erythrocyte Sedimentation Rate 6 mm/hr (0-20) Hemoglobin A1c 5.0 % A1C (<5.7) C-Reactive Protein High Sensitivity 0.50 mg/dL (<1.0) D-Dimer, Quantitative 0.25 mg/L FEU (0.0-0.49) Magnesium Level 2.2 mg/dL (1.6-2.6) B-Type Natriuretic Peptide 2.00 pg/mL (0-100) Other Laboratory Tests 09/03/24 10:55 Brief Hx & Hospital Course: History of Present Illness The patient is a 19-year-old male with past medical history of asthma and anxiety who presented to [facility] ED with complaint of chest pain. Patient reports having intermittent episode of left-sided chest pain, pressure in nature, nonradiating, tender to touch, getting worse that prompted this visit. Patient was seen and evaluated in the ED, laboratory data shows WBC 9.8, platelets 314, sodium 138, potassium 4.1, BUN 22, creatinine 0.93, GFR 121, glucose 88, troponin 89, AST 44, ALT 54, blood pressure 138/72, heart rate 87, temperature 97.8 F, O2 saturation 98% on room air. Patient was given aspirin 324 mg by mouth x1, please see medication orders section in the computer. On my assessment, patient denies chest pain at this moment, no headache, no dizziness, no diaphoresis, no shortness of breaths, no nausea, no vomiting, no fever, no chills. Patient was admitted for further evaluation and medical management. Course of hospitalization: Cardiology consultation was obtained. Patient had persistent elevation in troponin that were mild and equivocal. Patient underwent echocardiogram as well as nuclear stress test. All findings have been negative. Patient was re- interviewed, with the patient reporting that he works out daily, sometimes 2 hours a day as far as weight training. Patient was given a trial of IV Toradol which was successful in relieving his pain. Discussion was made with the patient's family were bedside that his chest pain is probably musculoskeletal in nature. He was instructed to follow up with his PCP in 2-3 weeks. All questions answered. Physical examination General: Alert and Oriented x3. No acute distress. Well-nourished. Eyes: EOMI. Anicteric. HENT: Moist mucous membranes. Lungs: Clear to auscultation bilaterally. No accessory muscle use. Cardiovascular: Regular rate and rhythm. No murmur. No JVD. Abdomen: Soft, non-tender and non-distended. No palpable masses. Extremities: No edema. Non-tender. Skin: No rashes or lesions. Warm. Neurologic: No focal neurological deficits. CN II-XII grossly intact, but not individually tested. Psychiatric: Cooperative. Appropriate mood and affect. Total time spent with patient discussing and formulating plan of care: 35 minutes. This medical document was created using an electronic medical record system with [employer] dictation system. Although this document has been carefully reviewed, there may still be some phonetic and typographical errors. These areas are purely typographical due to imperfections of the software programs, and do not reflect any compromise in the patient's medical care. Consults/Reason for consult Cardiology: Elevation troponin level Condition at Discharge: Good Final Diagnosis/Problems List Elevated troponin with chest pain secondary to musculoskeletal etiology Discharge Disposition: Home Discharge Instruct/Medications Diet: Regular Activity: See Comment Follow Up/Referral: Follow up with PCP in 2-3 weeks Medications: No new prescriptions 36 Discharge Statement: "Patient was advised to return to the ER or call 911 if any headaches, dizziness, shortness of breath, chest pain, abdominal pain, bleeding, fevers, or worsening of medical condition. Patient was counseled about treatment plan, medications, possible side effects, patientverbalized understanding. All questions were answered to the best of my ability. This discharge took greater then 30 minutes in planning, reviewing documentation, counseling the patient, and discussing with other team members." ASSESSMENT ASSESSMENT Assessment Elevated troponin with chest pain secondary to musculoskeletal etiology Date of Service: Sep 06, 2024 Billing Provider: ROSARIO DEVRIES NP Common Visit Codes: 04355-LMO/OBS DISCH DAY >30min ROSARIO DEVRIES NP Sep 06, 2024 12:18
[2024-09-06 12:36] VITALS: BP 128/65; PULSE 74; RESP 18; TEMP 97.7; O2SAT 97
[2024-09-06 13:00] VITALS: BP 130/79; PULSE 71; RESP 20; TEMP 98.3; O2SAT 99
--- NOTE | 2024-09-06 16:28 | DVHPN2 ---
Progress Note - Dictate Date Seen: Sep 06, 2024 Medical Necessity Reason Pt with a Central, PICC or Fol: No Subjective Patient was seen and evaluated in follow up. Cardiac stress test shoed an EF of 55% and negative for ischemia. Patient denies any cardiac symptoms. Patient is cardiac stable for discharge. Telemetry reviewed. vital signs Vital Sign Date Time Temp Pulse Resp B/P (MAP) Pulse Ox O2 Delivery O2 Flow Rate FiO2 09/06/24 13:00 98.3 71 20 130/79 (96) 99 98.3 09/06/24 08:00 Room Air* 0 21 Total Intake and Output 09/05/24 09/05/24 09/06/24 15:00 23:00 07:00 Intake Total 0 ml 350 ml Balance 0 ml 350 ml objective GENERAL: Awake, alert, oriented. LUNGS: Clear. CARDIOVASCULAR: Heart sounds are good. ABDOMEN: Soft. laboratory and microbiology Laboratory Tests 09/03/24 10:55 Test 09/03/24 10:55 Range/Units Serum Glucose 104 74-106 mg/dL Problem List Chest pain, rule out coronary ischemia. NSTEMI, likely type II. Rule out structural heart disease. Hyperlipidemia, newly diagnosed. Assessment/Plan Continued all current supportive medical care. Morphine and [place] for pain management. Aspirin. Nitro SL. Additional plan as per the hospital course. Dietary Evaluation Review Recommendations by RD: Dietary education by RD Comments: 1) Encourage patient to decrease intake of saturated fats. Substitute olive oil, canola oil, avocado oil, for butter, lard, shortening, coconut oil, or palm oil. Select lean sources of protein. For example, skinless chicken breast; beef or pork tenderloin; fish; low-fat cheese; non-fat [place] yogurt; edamame; 90/10 ground beef; etc. Limit consumption of processed foods 2) Consider fiber supplement such as psyllium husk 3) Physical activity as tolerated per provider's recommendations 4) F/u with cardiology Expected Outcomes/Goals: 1) labs and appetite to improve 2) f/u in 3-5 days Plan discussed with: Patient GISSELL MORTON MD Sep 06, 2024 16:28
== END 2024-09-06 13:10 | disposition home or self-care (01) | DRG 190 ==
LOC: ER 21:19 → TELE 09-02 04:10 → TELE-WESTW 09-03 03:17
PROVIDERS: ADMIT Nurse Practitioner Family; ATTEND Nurse Practitioner Acute Care
DX: R07.89 Other chest pain (principal); I21.A1 Myocardial infarction type 2; E78.5 Hyperlipidemia, unspecified; F41.9 Anxiety disorder, unspecified; Z79.899 Other long term (current) drug therapy; Z83.3 Family history of diabetes mellitus
CPT/HCPCS: 36415; 71045; 71250; 78452; 80053; 80061; 80307; 81001; 83036; 83735; 83880; 84443; 84484; 85025; 85379; 85652; 86141; 93005; 93017; 93306; 96374; 99291; G0378; J1885